=== PATIENT | female | born 1960 | race African-American/Black ===

== ENCOUNTER → 2019-02-03 | Outpatient (CLI) | payer MEDICARE, MEDICAID ==
--- NOTE | 2019-02-03 16:38 | RAD ---
Indication:Vaginal bleeding TECHNIQUE: Grayscale, color Doppler and spectral waveform images of the pelvis obtained. COMPARISON: None FINDINGS: The uterus is anteverted and measures 12.4 x 5.2 x 0.3 cm (longitudinal, AP, transverse). Hypoechoic ill-defined masslike lesion is seen in the upper uterine body measuring 3.5 x 3.8 x 3.2 cm. Scattered areas of echogenic foci suggests calcification in the fibroid. Endometrial stripe is not visualized likely distorted by the fibroid. The left ovary measures 2.7 x 1.8 x 1.6 cm and shows evidence of blood flow. Right ovaries are visualized. No free pelvic fluid. IMPRESSION: 1. Moderate sized fibroid in the upper uterine body distorting the endometrial lining which may be secondary to fibroid being in a submucosal location. Further evaluation with hysteroscopy recommended. 2. Right ovary not visualized. Electronically signed by: Nima Adam DO (02/03/2019 4:35 PM) [facility]
== END | disposition home or self-care (01) ==
LOC: US 15:27
PROVIDERS: ATTEND Obstetrics & Gynecology
DX: D25.0 Submucous leiomyoma of uterus (principal); N85.4 Malposition of uterus
CPT/HCPCS: 76856

== ENCOUNTER 2019-05-02 10:49 | Observation (INO) | payer MEDICARE, MEDICAID ==
[~2019-05-02] VITALS: Ht 160 cm; Wt 102.0 kg
[~2019-05-02 10:49] MED LIST: ALPR1TAB2 PO; CYCL10TA2 PO; DOCU-109 PO; GLYC10.7 IH; HYDROmorphone 2 MG/ML VIAL IV PRN; IBUP-1060 PO; IV RINGERS,LACTATED 1000ML 1,000 ML IV SCH; LOSA-73 PO; MONT10TA49 PO; MORPHINE SULFATE 2 MG/ML VIAL. IV PRN; OMEP40CA5 PO; ONDANSETRON PF 4 MG/2 ML VIAL. IV PRN; PROCHLORPERAZINE 10 MG/2 ML VIAL. IV PRN; VENTOLIN HFA18 GM INH; ceFAZolin SODIUM 3 GM in IV DEXTROSE 5% 100ML 100 ML IV PRN; fentaNYL PF VIAL 100 MCG/2 ML VIAL IV PRN
--- NOTE | 2019-05-02 11:23 | EKG ---
[facility] [address] [place] [address] Test Date: 2019-05-02 Test Time: 11:25:13 Pat Name: DANIEL LEE Department: Room: Gender: F Drop Press Hand: : 1960 Requested By: DIANNA MALIK Order Number: [id number] Reading MD: Measurements Intervals [place] Rate: 69 P: 47 KS: 170 QRS: -17 QRSD: 96 T: 13 QT: 404 QTc: 434 Interpretive Statements SINUS RHYTHM LEFTWARD AXIS OTHERWISE NORMAL ECG RI6.01 No previous ECG available for comparison
[2019-05-02] MEDS ORDERED: SURGICEL HEMOSTAT 4X8 EACH. ONE (11:57)
[2019-05-02] MEDS ORDERED: METHYLENE BLUE 1% 10 ML VIAL. ONE (11:57)
[2019-05-02] MEDS ORDERED: ESTROGENS, CONJ VAGINAL CREAM 30GM TUBE. ONE (11:57)
[2019-05-02] MEDS ORDERED: LIDOCAINE 1%/EPI 1:100,000 20 ML VIAL. ONE (11:57)
[2019-05-02] MEDS ORDERED: BUPIVACAINE-EPI 0.25%-1:200000 MPF 30 ML VIAL. ONE (11:57)
[2019-05-02 12:04] LABS: BASO % 1 % (0-3); EOS # 0.5 x10^3/uL (0.0-0.7); EOS % 6 % (0-3); HEMATOCRIT 35.4 % (36.0-47.0); HEMOGLOBIN 11.5 g/dL (12.0-15.5); LYMPH # 2.5 x10^3/uL (1.0-4.8); LYMPH % 29 % (24-48); MEAN CORPUSCULAR HEMOGLOBIN 27 pg (25-35); MEAN CORPUSCULAR HGB CONC 32 g/dL (31-37); MEAN CORPUSCULAR VOLUME 82 fL (79-100); MONO # 0.4 x10^3/uL (0.0-1.1); MONO % 5 % (0-9); NEUT # 5.3 x10^3uL (1.8-7.7); NEUT % 60 % (31-73); PLATELET COUNT 310 x10^3/uL (140-400); RED BLOOD COUNT 4.31 x10^6/uL (3.50-5.40); RED CELL DISTRIBUTION WIDTH 17.8 % (11.5-14.5); WHITE BLOOD COUNT 8.8 x10^3/uL (4.0-11.0)
[2019-05-02 12:17] LABS: CALCIUM 9.3 mg/dL (8.5-10.1); GFR 68.7; POTASSIUM 3.2 mmol/L (3.5-5.1)
[2019-05-02] MEDS ORDERED: fentaNYL PF VIAL 100 MCG/2 ML VIAL ONE ×3 (12:32→16:09)
[2019-05-02] MEDS ORDERED: DEXAMETHASONE SOD PHOS 4 MG/ML VIAL ONE ×2 (12:32)
[2019-05-02] MEDS ORDERED: KETOROLAC 30 MG/ML INJ FOR OR. INJ ONE (12:32)
[2019-05-02] MEDS ORDERED: ONDANSETRON PF 4 MG/2 ML VIAL. ONE (12:32)
[2019-05-02] MEDS ORDERED: ROCURONIUM 50 MG/5 ML VIAL. ONE (12:32)
[2019-05-02] MEDS ORDERED: PROPOFOL 20 ML IV ONE (12:32)
[2019-05-02] MEDS ORDERED: SEVOFLURANE 61 TO 120 MINUTES. IH ONE (12:32)
[2019-05-02] MEDS ORDERED: ESMOLOL 100 MG/10 ML VIAL. IVP ONE (13:42)
[2019-05-02] MEDS ORDERED: PHENYLEPHRINE in 0.9% NACL PF 1 MG/10 ML SYRINGE. IV ONE (13:42)
[2019-05-02] MEDS ORDERED: GLYCOPYRROLATE 1 MG/5 ML VIAL. ONE (14:54)
[2019-05-02] MEDS ORDERED: NEOSTIGMINE METHYLSULFATE 5 MG/5 ML SYRINGE. ONE (14:54)
[2019-05-02] MEDS ORDERED: LIDOCAINE 2% PF 5 ML VIAL. ONE (15:10)
--- NOTE | 2019-05-02 15:11 | PDOC ---
BRIEF OPERATIVE NOTE Date: May 02, 2019 Pre-Op Diagnosis 1. Menorrhagia 2. Fibroids Post-Op Diagnosis Same Procedure Performed LAVH & BSO Surgeon Dr. Avalos Bottom Finisher FA: Jani Jerez Anesthesia Type: General Blood Loss 50 ml Specimens Obtained cervix, uterus, tanvir. fallopian tubes and ovaries Findings enlarged, fibroid uterus with pelvic sidewall adhesions; nml fallopian tubes and ovaries tanvir. Complications none Operative Note see dictation DIANNA AVALOS Jr, MD May 02, 2019 15:11
[2019-05-02] MEDS ORDERED: ONDANSETRON PF 4 MG/2 ML VIAL. IV PRN (15:15)
[2019-05-02] MEDS ORDERED: KETOROLAC 30 MG/ML VIAL. IV PRN (15:15)
[2019-05-02] MEDS ORDERED: 0.9 % SODIUM CHLORIDE 10 ML DISP.SYRIN. IV PRN (15:15)
[2019-05-02] MEDS ORDERED: IBUPROFEN 400 MG TABLET. PO PRN (15:15)
[2019-05-02] MEDS ORDERED: diphenhydrAMINE 50 MG/ML VIAL IV PRN (15:15)
[2019-05-02] MEDS ORDERED: SIMETHICONE 80 MG TAB.CHEW PO PRN (15:15)
[2019-05-02] MEDS ORDERED: PROCHLORPERAZINE 10 MG/2 ML VIAL. IV PRN (15:15)
[2019-05-02] MEDS ORDERED: CALCIUM CARBONATE 500 MG TAB.CHEW PO PRN (15:15)
[2019-05-02] MEDS ORDERED: diphenhydrAMINE HCL 25 MG CAPSULE PO PRN (15:15)
[2019-05-02] MEDS ORDERED: DEXTROSE 50% 25 GM / 50ML DISP.SYRIN. IV PRN (15:15)
[2019-05-02] MEDS ORDERED: ZOLPIDEM 5 MG TABLET. PO PRN (15:15)
[2019-05-02] MEDS ORDERED: PROCHLORPERAZINE 10 MG/2 ML VIAL. ONE (15:32)
[2019-05-02] MEDS: fentaNYL PF VIAL 100 MCG/2 ML VIAL IV PRN ×4 (15:40→16:45)
--- NOTE | 2019-05-02 15:58 | OP ---
DATE OF SURGERY: PREOPERATIVE DIAGNOSES: 1. Menorrhagia. 2. Fibroids. POSTOPERATIVE DIAGNOSES: 1. Menorrhagia. 2. Fibroids. PROCEDURE: LAVH, BSO. SURGEON: Dianna Avalos MD INTELLIGENCE OPERATIONS: Jani Jerez. ANESTHESIA: GETA. ESTIMATED BLOOD LOSS: 50 mL. COMPLICATIONS: None. FINDINGS: Enlarged fibroid uterus, pelvic sidewall adhesions, normal fallopian tubes and ovaries bilaterally. SUMMARY: A 58-year-old female with menorrhagia and fibroid uterus, unresponsive to medical management requiring hysterectomy. The patient was counseled on risks, benefits and expectations of LAVH and BSO and voiced clear understanding to proceed. DESCRIPTION OF PROCEDURE: The patient was taken to surgery suite and placed in dorsal lithotomy position. She was prepped with Betadine solution for vaginal prep and ChloraPrep for abdominal prep. After adequate anesthesia, weighted speculum and curved David placed vaginally and the anterior lip of the cervix was grasped with a single tooth tenaculum. Valtchev uterine manipulator was then placed. Weighted speculum and curved David then removed. Attention was now placed on abdomen. Small transverse skin incision made just above the umbilicus with the scalpel. The Veress needle was then placed through the supraumbilical incision site. The abdomen was allowed to insufflate up to 2 liters of CO2 gas. The Veress needle was then removed, 5 mm trocar was placed. Scope was positioned. Uterus was enlarged with fibroids and multiple pelvic sidewall adhesions as well as abdominal wall adhesions. Two incisions made in the left lower quadrant with a scalpel in which 5 mm trocars were placed. With the aid of graspers and EnSeal device, the right round ligament was coagulated and dissected. The right infundibulopelvic ligament was coagulated and dissected. Right broad ligament was coagulated and dissected down to including the right uterine artery. Same process took place with left adnexa. The abdominal wall adhesions to the uterine fundus were removed with aid of the EnSeal device. Bladder flap was created using the EnSeal device and blunt dissection. Suction irrigation was utilized to verify good hemostasis. We then proceeded vaginally. Weighted speculum and curved David placed vaginally. The Valtchev uterine manipulator and single tooth tenaculum were removed. J Carlos clamps were placed on the anterior and posterior lip of the cervix. The cervix was injected with 1% lidocaine with epinephrine in a circumferential manner. Bovie cautery was utilized to circumscribe the cervix. The vaginal wall mucosa was dissected away from the lower uterine segment using blunt dissection with a moist Ray-Shayla. The parametrial tissue and cardinal ligaments were clamped bilaterally with curved Adela clamps, cut and suture ligated with 2-0 Vicryl suture. Posterior cul-de-sac was entered sharply and curved Cruz scissors. The long weighted speculum placed. Uterosacral ligaments were clamped bilaterally, cut, and suture ligated. The uterus was then retroverted and removed in its entirety. The vaginal cuff was reapproximated using modified Blanco culdoplasty incorporating uterosacral ligaments bilaterally. The remainder of the vaginal cuff was reapproximated using 2-0 Vicryl suture in a foahqg-jo-unvek manner. Premarin soaked vaginal packing was placed. Attention was once again placed on the abdomen. The abdomen was allowed to insufflate up to 1-1/2 liters CO2 gas. The scope was positioned. The posterior vaginal cuff was visualized, was hemostatic. Suction irrigation was utilized to verify good hemostasis. Small amount of normal saline was left in the posterior cul-de-sac. The trocars were then removed under direct visualization. The abdomen was allowed to deflate as much as possible along with mechanical manipulation. The three skin incisions were reapproximated using 4-0 Vicryl suture in a subcuticular manner. A 0.25% Marcaine with epinephrine was injected at each incision site. The patient tolerated the procedure well and was taken to recovery room in stable condition. Sponge and needle count correct x 3. DIANNA AVALOS MD DR: ROBB/sharon JOB#: [id number] / [id number]
[2019-05-02 16:40] VITALS: BP 114/72
[2019-05-02 17:00] VITALS: BP 115/76
[2019-05-02 17:15] VITALS: BP 116/77
[2019-05-02 18:53] VITALS: BP 121/81
[2019-05-02] MEDS: oxyCODONE/APAP 5/325 1 TAB TABLET PO PRN (19:14)
[2019-05-02] MEDS: MAGNESIUM HYDROXIDE 2,400 MG/30 ML ORAL.SUSP. PO PRN (19:45)
[2019-05-02 20:30] VITALS: BP 119/70
[2019-05-03] MEDS: oxyCODONE/APAP 5/325 1 TAB TABLET PO PRN ×3 (00:04→14:23)
[2019-05-03 03:30] VITALS: BP 119/64
[2019-05-03 06:36] LABS: BASO % 0 % (0-3); EOS % 0 % (0-3); HEMATOCRIT 31.3 % (36.0-47.0); HEMOGLOBIN 10.1 g/dL (12.0-15.5); LYMPH # 1.7 x10^3/uL (1.0-4.8); LYMPH % 12 % (24-48); MEAN CORPUSCULAR HEMOGLOBIN 26 pg (25-35); MEAN CORPUSCULAR HGB CONC 32 g/dL (31-37); MEAN CORPUSCULAR VOLUME 82 fL (79-100); MONO % 7 % (0-9); NEUT # 12.4 x10^3uL (1.8-7.7); NEUT % 82 % (31-73); PLATELET COUNT 295 x10^3/uL (140-400); RED BLOOD COUNT 3.84 x10^6/uL (3.50-5.40); RED CELL DISTRIBUTION WIDTH 17.8 % (11.5-14.5); WHITE BLOOD COUNT 15.1 x10^3/uL (4.0-11.0)
[2019-05-03] MEDS: MAGNESIUM HYDROXIDE 2,400 MG/30 ML ORAL.SUSP. PO PRN (10:37)
[2019-05-03 10:52] VITALS: BP 119/76
[2019-05-03 15:00] VITALS: BP 117/72
--- NOTE | 2019-05-03 15:33 | PDOC ---
SURGICAL PROGRESS NOTE Subjective Pt. feeling well. Pain controlled, ambulating and voiding without difficulty. Pt. with flatus. Vital Signs Vital Signs Date Time Temp Pulse Resp B/P (MAP) Pulse Ox O2 Delivery O2 Flow Rate FiO2 05/03/19 10:52 98.1 68 20 119/76 (90) 97 98.1 05/03/19 09:11 Room Air 4.0 I&O Intake and Output 05/03/19 07:00 Intake Total 2475 ml Output Total 1100 ml Balance 1375 ml Intake Oral 875 ml IV Total 1600 ml Output Urine Total 1050 ml Estimated Blood Loss 50 ml PATIENT HAS A MACDONALD: No General: Alert, Oriented X3, Cooperative HEENT: Atraumatic Lungs: Clear to auscultation Heart: Regular rate Abdomen: Normal bowel sounds, Soft, No tenderness, No masses Psych/Mental Status: Mental status NL Labs Laboratory Tests Test 05/02/19 11:50 05/03/19 06:00 White Blood Count 8.8 x10^3/uL (4.0-11.0) 15.1 x10^3/uL (4.0-11.0) Red Blood Count 4.31 x10^6/uL (3.50-5.40) 3.84 x10^6/uL (3.50-5.40) Hemoglobin 11.5 g/dL (12.0-15.5) 10.1 g/dL (12.0-15.5) Hematocrit 35.4 % (36.0-47.0) 31.3 % (36.0-47.0) Mean Corpuscular Volume 82 fL (79-100) 82 fL (79-100) Mean Corpuscular Hemoglobin 27 pg (25-35) 26 pg (25-35) Mean Corpuscular Hemoglobin Concent 32 g/dL (31-37) 32 g/dL (31-37) Red Cell Distribution Width 17.8 % (11.5-14.5) 17.8 % (11.5-14.5) Platelet Count 310 x10^3/uL (140-400) 295 x10^3/uL (140-400) Neutrophils (%) (Auto) 60 % (31-73) 82 % (31-73) Lymphocytes (%) (Auto) 29 % (24-48) 12 % (24-48) Monocytes (%) (Auto) 5 % (0-9) 7 % (0-9) Eosinophils (%) (Auto) 6 % (0-3) 0 % (0-3) Basophils (%) (Auto) 1 % (0-3) 0 % (0-3) Neutrophils # (Auto) 5.3 x10^3uL (1.8-7.7) 12.4 x10^3uL (1.8-7.7) Lymphocytes # (Auto) 2.5 x10^3/uL (1.0-4.8) 1.7 x10^3/uL (1.0-4.8) Monocytes # (Auto) 0.4 x10^3/uL (0.0-1.1) 1.0 x10^3/uL (0.0-1.1) Eosinophils # (Auto) 0.5 x10^3/uL (0.0-0.7) 0.0 x10^3/uL (0.0-0.7) Basophils # (Auto) 0.0 x10^3/uL (0.0-0.2) 0.0 x10^3/uL (0.0-0.2) Sodium Level 142 mmol/L (136-145) Potassium Level 3.2 mmol/L (3.5-5.1) Chloride Level 105 mmol/L (98-107) Carbon Dioxide Level 28 mmol/L (21-32) Anion Gap 9 (6-14) Blood Urea Nitrogen 13 mg/dL (7-20) Creatinine 1.0 mg/dL (0.6-1.0) Estimated GFR (Cockcroft-Gault) 68.7 Glucose Level 117 mg/dL (70-99) Calcium Level 9.3 mg/dL (8.5-10.1) Laboratory Tests Test 05/03/19 06:00 White Blood Count 15.1 x10^3/uL (4.0-11.0) Red Blood Count 3.84 x10^6/uL (3.50-5.40) Hemoglobin 10.1 g/dL (12.0-15.5) Hematocrit 31.3 % (36.0-47.0) Mean Corpuscular Volume 82 fL (79-100) Mean Corpuscular Hemoglobin 26 pg (25-35) Mean Corpuscular Hemoglobin Concent 32 g/dL (31-37) Red Cell Distribution Width 17.8 % (11.5-14.5) Platelet Count 295 x10^3/uL (140-400) Neutrophils (%) (Auto) 82 % (31-73) Lymphocytes (%) (Auto) 12 % (24-48) Monocytes (%) (Auto) 7 % (0-9) Eosinophils (%) (Auto) 0 % (0-3) Basophils (%) (Auto) 0 % (0-3) Neutrophils # (Auto) 12.4 x10^3uL (1.8-7.7) Lymphocytes # (Auto) 1.7 x10^3/uL (1.0-4.8) Monocytes # (Auto) 1.0 x10^3/uL (0.0-1.1) Eosinophils # (Auto) 0.0 x10^3/uL (0.0-0.7) Basophils # (Auto) 0.0 x10^3/uL (0.0-0.2) Assessment/Plan A: POD# 1 s/p LAVH & BSO P: D/c home. DIANNA MALIK Jr, MD May 03, 2019 15:33
[2019-05-03] MEDS ORDERED: OXYC1TAB15 PO (15:36)
[2019-05-03] MEDS ORDERED: DOCU-109 PO (15:36)
[2019-05-03] MEDS ORDERED: IBUP-1060 PO (15:36)
--- NOTE | 2019-05-03 15:36 | DISCH ---
DISCHARGE INSTRUCTIONS Condition on Discharge Condition on Discharge: Stable Activity After Discharge Activity Instructions for Disc: Activity as tolerated Lifting Instructions after Dis: No heavy lifting Driving Instructions after Dis: No driving for 2 weeks Diet after Discharge Diet after Discharge: Regular Contacting the DRTra after DC Call your doctor for: Concerns you may have Follow-Up Follow up with: Dr. Avalos in 2 week.s DIANNA AVALOS Jr, MD May 03, 2019 15:36
--- NOTE | 2019-05-06 21:06 | PATHOLOGY ---
[facility] Accession Number: [id number] . 01 Material submitted: . uterus - CERVIX, UTERUS, BILATERAL TUBES AND OVARIES . 01 Clinical history: . Abnormal bleeding . 02 Diagnosis: Uterus, bilateral ovaries and fallopian tubes, hysterectomy and bilateral salpingo-oophorectomy: - Cervix with no pathologic diagnosis. - Proliferative phase endometrium. - Myometrium with leiomyomata, three, measuring up to 3.2 cm. - Serosal surface with no pathologic diagnosis. 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 - Left fallopian tube with simple paratubal cyst and adhesion to left ovary. - Right ovary with endosalpingiosis and adhesion to uterus. - Left ovary with adhesion to uterus. (RYANM:que; 05/06/2019) MBR/05/06/2019 . 02 Electronically signed: . Adarsh Fitch MD, Pathologist NPI- [id number] . 01 Gross description: . The specimen is received in formalin, labeled ", Casie Stein, cervix, uterus, bilateral tubes and ovaries", is a symmetrical enlarged, pyriform uterus weighing 155 g and measuring 11.0 x 5.5 x 5.0 cm with attached bilateral adnexa weighing 8 g (right) and 6 g (left). Both the ovaries are adhered to the uterus and the bilateral previously ligated fallopian tubes adherent to the ovaries. The right ovary = 2.5 x 1.5 x 1.2 cm, and the fimbriated fallopian tube is 4.7 cm in length with an average 0.5 cm diameter and the left ovary = 2.2 x 2.0 x 1.2 cm and the fimbriated fallopian tube 6.0 cm in length with an average 0.3 cm diameter. The serosa is vides-pink and smooth. The anterior paracervical soft tissue is inked blue. The ectocervix is distorted and has a surface diameter of 3.7 x 2.5 cm and a 1.0 cm slit-like external os. The ectocervical mucosa is vides-white and disrupted. The 3.6 cm long x 0.7 cm wide endocervical canal is covered with vides-white mucosa. The endometrial cavity is distorted, 6.0 cm long x 3.0 cm wide, and covered with vides-white, hemorrhagic endometrium of 0.1 cm thickness. There are no polyps or masses. There are three intramural (two on anterior and one on posterior), one subserosal (posterior) and one submucosal (largest) nodules ranging 0.4 x 0.4 x 0.4 cm to 4.0 x 3.2 x 2.6 cm with mazariegos-white, whorled, trabeculated cut surfaces with no discrete hemorrhage or necrosis. The uninvolved myometrium is 1.5 cm in thickness. The bilateral ovaries have a vides-mazariegos cerebriform external surface. The cut surfaces are white-mazariegos, with a well-defined multiple white nodules resembling corpora albicantia. There is also an intraparenchymal cyst filled with clear fluid. The bilateral fallopian tubes have pink-vides serosa. The lumen appears patent. [employer] tissue submitted as follows: A1. Anterior cervix. A2. Posterior cervix. A3-A4. Anterior endomyometrium. (Lower uterine segment to fundus) A5-A6. Posterior endomyometrium. (Fundus to lower uterine segment) A7-A8. Submucosal nodule. A9. Anterior intramural and submucosal nodules. A10. Posterior intramural and subserosal nodules. A11. Right ovary and right fallopian tube. A12. Right fallopian tube. A13. Left ovary and left fallopian tube. A14. Left fallopian tube ([facility]; 05/05/2019) SHS/SHS . 02 Pathologist provided ICD-10: D25.9, N94.89, N83.8, N93.9 . 02 CPT . 440809 Specimen Comment: A courtesy copy of this report has been sent to Specimen Comment: [phone], . Specimen Comment: Report sent to / DR COHEN Performed at: 01 [facility] [address], [place], [place] [id number] MD Dhiraj Archer MD Phone: [phone] Performed at: 02 [facility] [address] [place], [place] [id number] MD Kerwin Rodriguez MD Phone: [phone]
== END 2019-05-03 16:13 | disposition home or self-care (01) ==
LOC: SURG 10:49 → 3 NORTH 15:00
PROVIDERS: ADMIT Obstetrics & Gynecology; ATTEND Obstetrics & Gynecology
PROC: 0UT9FZZ Resection of Uterus, Via Natural or Artificial Opening With Percutaneous Endoscopic Assistance (ICD-10-PCS; principal; 2019-05-02 13:00)
DX: D25.9 Leiomyoma of uterus, unspecified (principal); N92.0 Excessive and frequent menstruation with regular cycle; F41.9 Anxiety disorder, unspecified; F32.9 Major depressive disorder, single episode, unspecified; I10 Essential (primary) hypertension; E78.5 Hyperlipidemia, unspecified; Z80.9 Family history of malignant neoplasm, unspecified; Z82.49 Family history of ischemic heart disease and other diseases of the circulatory system
CPT/HCPCS: 36415; 58550; 80048; 85025; 86850; 86900; 86901; 88307; 93005; A7015; G0378; G0379; J0780; J1100; J1885; J2001; J2370; J2405; J2704; J2710; J3010; J3490; J7030; J7120; Q9968